=== PATIENT | male | born 1965 | race Caucasian/White ===

== ENCOUNTER 2017-12-16 11:37 | Emergency (ER) | payer OTHER, SELFPAY ==
[2017-12-16] VITALS (8 sets, daily range): BP systolic 175–193; BP diastolic 104–112; PULSE 73–87; RESP 7–18; TEMP 36.8; O2SAT 98–100
--- NOTE | 2017-12-16 11:49 | ED.GENADUL ---
Disposition <Sixto Funez - Last Filed: 12/16/17 12:10> <[place] - Last Filed: 12/19/17 09:45> Clinical Impression: High blood pressure, Dehydration Disposition: HOME Condition: Fair Instructions: Lisinopril (By mouth), Dehydration (ED), Hypertension (ED) Additional Instructions: Encourage hydration. Take lisinopril as prescribed. Take this once daily. Please follow-up with primary care this week for reevaluation. Avoid alcohol while symptoms persist. If you develop fever/chills, headache, visual changes, chest pain, shortness of breath or other new/worsening care urgently once again. Prescriptions: Lisinopril 10 mg PO .QD #10 tablet Referrals: Primary Care Provider [Outside] Medical Decision Making - EKG Data -: EKG Interpreted by Me 12/16/17 12:10 Rate 73, ID 134, QTc 447, QRS 98, normal sinus rhythm. No ST elevations or depressions. Inverted T-wave in V1. No Q waves. Normal EKG. <Sixto Funez - Last Filed: 12/16/17 12:10> - Lab Data Laboratory Tests 12/16/17 12/16/17 12/16/17 12:08 12:08 12:08 WBC 7.38 RBC 4.69 Hgb 15.1 Hct 43.2 MCV 92.1 MCH 32.2 MCHC 35.0 RDW 13.3 Plt Count 206 MPV 11.1 H Immature Gran % 0.7 Neutrophils % 47.7 Lymphocytes % 38.5 Monocytes % 11.2 Eosinophils % 1.4 Basophils % 0.5 Absolute Neutrophils 3.52 Absolute Lymphocytes 2.84 Absolute Monocytes 0.83 H Absolute Eosinophils 0.10 Absolute Basophils 0.04 D-Dimer 293 Sodium 138 Potassium 3.6 Chloride 102 Carbon Dioxide 26.4 Anion Gap 9.6 BUN 19 H Creatinine 0.85 Estimated GFR/1.73 m2 >= 60.00 Glucose 98 Calcium 8.7 Magnesium 2.3 Total Bilirubin 1.0 AST 24 ALT 44 Alkaline Phosphatase 100 Troponin I < 0.02 Total Protein 7.9 Albumin 4.3 Urine Color Urine Clarity Urine pH Ur Specific [place] Urine Protein Urine Ketones Urine Blood Urine Nitrite Urine Bilirubin Urine Urobilinogen Ur Leukocyte Esterase Urine RBC Urine WBC Ur Epithelial Cells Urine Crystals Urine Bacteria Urine Casts Urine Mucus Ur Culture Indicated? Urine Glucose 08/08/18 12:14 WBC RBC Hgb Hct MCV MCH MCHC RDW Plt Count MPV Immature Gran % Neutrophils % Lymphocytes % Monocytes % Eosinophils % Basophils % Absolute Neutrophils Absolute Lymphocytes Absolute Monocytes Absolute Eosinophils Absolute Basophils D-Dimer Sodium Potassium Chloride Carbon Dioxide Anion Gap BUN Creatinine Estimated GFR/1.73 m2 Glucose Calcium Magnesium Total Bilirubin AST ALT Alkaline Phosphatase Troponin I Total Protein Albumin Urine Color Yellow Urine Clarity Clear Urine pH 7.0 Ur Specific [place] 1.015 Urine Protein Negative Urine Ketones Negative Urine Blood Trace-intact H Urine Nitrite Negative Urine Bilirubin Negative Urine Urobilinogen 0.2 Ur Leukocyte Esterase Negative Urine RBC 3-5 H Urine WBC 0-2 Ur Epithelial Cells Rare Urine Crystals Negative Urine Bacteria Negative Urine Casts Negative Urine Mucus Negative Ur Culture Indicated? No Urine Glucose Negative Results reviewed for labs ordered during visit: Yes - Medical Decision Making Patient presents today with chief complaint of bug bite to the left forearm. On exam, this is more consistent with possible pincher scratch. Is a small abrasion to the left forearm with surrounding ecchymosis. Patient is also endorsing some dizziness particularly when going from a squatting to standing position which is atypical for him. Patient was concerned that the 2 may be linked. However, I am unable to link the 2 at this time. Patient appears nontoxic. There is no evidence of cellulitis at the opening in the skin. Patient is noted to have high blood pressure with a BP of 184/104. Patient reports that typically his blood pressures normal. He is not sure what this typically means for him. States he was seen by his primary care recently. He does have history of hyperlipidemia and GERD. He denies any headache. Drove up recently from [place]. No lower extremity edema. No calf tenderness. Asked nursing staff to obtain orthostatics. STanding BP 193/105, sitting 185/112, laying down 184/104. Pulse remained consistent at 75. Patient reported feeling light headed when going from sitting to standing position. Am concerned about patient's elevated blood pressure. I was able to speak with the nurse at patient's primary care office who was able to give me most recent readings of his blood pressure. He is typically in the 120s over 70s. This sudden spike of blood pressure is unusual for the patient. However, he remains otherwise asymptomatic. I question the patient multiple times about any headaches, chest pain or shortness of breath and he denies all of these symptoms. We will obtain laboratory evaluation. Laboratory evaluation without significant abnormality. D-dimer is normal at 293. Troponin is less than 0.02. No leukocytosis. Kidney function is normal. Patient did appear slightly dehydrated on exam. BUN is 19. I encouraged hydration. Patient's blood pressure, while resting in the department, did come down slightly to 175/106. Patient continues to remain asymptomatic. I did ambulate the patient about the department. His lightheadedness has since resolved. Patient is able to go from a lying to a standing position and remain asymptomatic. He reports he is feeling much improved. I discussed the case at length with Dr. Funez. I discussed my concerns of his hypertension. Primary care is aware of his current blood pressure. Dr. Funez recommended beginning the patient on lisinopril. We will start him on a low dose in an effort to not bottom out his blood pressure. He was given strict return precautions. Will be evaluated by his primary care within the next 48 hours. <[place] - Last Filed: 12/19/17 09:45> History of Present Illness <Sixto Funez - Last Filed: 12/16/17 12:10> - General Source: patient, RN notes reviewed Mode of arrival: ambulatory Limitations: no limitations - History of Present Illness Initial comments: Patient is a 52 year old male presenting today with chief complaint of bug bite to the left bicep. Ports that yesterday he believes that he was bitten by a bug. Awoke this morning to note a circumferential discoloration around the area of bite. Has not had any fevers or chills. Also reports that he is feeling dizzy. He describes as dizziness as feeling lightheaded when he goes from a bent over position to standing up. Reports he is trying to help his children this morning was bending over looking under motorized vehicles. States that when he stood up he had an episode of lightheadedness. No syncope. Denies any headache. Denies any visual changes, hearing changes, shortness of breath, chest pain. Patient is from [place] and drove up 5 days ago. He denies any posterior calf pain. Has not noted any leg swelling. States that yesterday he was outside throughout the course of the day, is quite hot yesterday. States that he did try to drink water. Also reports that he has been drinking alcohol for the past 2 days. <[place] - Last Filed: 12/19/17 09:45> - General Stated complaint: BUG BITE Time Seen by Provider: 12/16/17 11:41 - Related Data Lisinopril 10 mg PO .QD #10 tablet 12/16/17 Omeprazole 20 mg PO BID 12/16/17 Simvastatin 40 mg PO DAILY 12/16/17 Allergies Allergy/AdvReac Type Severity Reaction Status Date / Time No Known Allergies Allergy Unverified 12/16/17 13:52 Review of Systems Constitutional: no symptoms reported. denies: chills, fever, malaise Eyes: denies: vision change ENT: denies: ear pain, hearing loss Respiratory: no symptoms reported. denies: cough, shortness of breath, SOB with excertion, wheezing Cardiovascular: denies: chest pain, palpitations, dyspnea on exertion Gastrointestinal: denies: abdominal pain, nausea, vomiting Musculoskeletal: denies: back pain Skin: as per HPI Neurological: as per HPI. denies: headache, weakness, numbness, paresthesias, confusion, abnormal gait, vertigo <[place] - Last Filed: 12/19/17 09:45> Past Medical History - Past Medical History Medical history: GERD, hyperlipidemia Surgical history: no surgical history - Social History Alcohol use: occasionally, recent Drug use: marijuana <[place] - Last Filed: 12/19/17 09:45> General Exam - General Limitations: no limitations General appearance: alert, in no apparent distress - Head Head exam: Present: atraumatic - Eye Eye exam: Present: normal apperance - Respiratory Respiratory exam: Present: normal lung sounds bilaterally. Absent: respiratory distress - Cardiovascular Cardiovascular Exam: Present: regular rate, normal rhythm, normal heart sounds - GI/Abdominal GI/Abdominal exam: Present: soft. Absent: distended, tenderness - Rectal Rectal exam: Present: deferred - Extremities Exam Extremities exam: Present: normal inspection. Absent: pedal edema, calf tenderness - Neurological Exam Neurological exam: Present: alert, normal gait - Psychiatric Psychiatric exam: Present: normal affect, normal mood - Skin Skin exam: Present: warm, dry. Absent: intact (Patient is a small superficial scratch is approximately 2 mm in length over the left bicep. Surrounding this area is a circumferential area of ecchymosis approximately 2 cm in diameter. It is not raised. No evidence of excoriation.) <[place] - Last Filed: 12/19/17 09:45> Course Vital Signs - 24 hr 12/16/17 12/16/17 11:43 11:56 Temperature 36.8 C Pulse 74 Respiratory 18 16 Rate Blood Pressure 184/104 Pulse Oximetry 98 <Sixto Funez - Last Filed: 12/16/17 12:10> Vital Signs - 24 hr 12/16/17 11:43 Temperature 36.8 C Pulse 74 Respiratory 18 Rate Blood Pressure 184/104 Pulse Oximetry 98 <[place] - Last Filed: 12/19/17 09:45>
[2017-12-16 12:22] LABS: Abs Immature Grans 0.05 k/cumm (0.0-0.09); Absolute Basophil Count 0.04 k/cumm (0.0-0.2); Absolute Lymphocyte Count 2.84 k/cumm (1.2-3.4); Absolute Monocyte Count 0.83 k/cumm (0.11-0.7); Absolute Neutrophil Count 3.52 k/cumm (1.2-6.7); Basophils % 0.5; Eosinophils % 1.4; HCT 43.2 % (40.0-50.0); HGB 15.1 g/dL (13.5-17.5); Immature Grans % 0.7; Lymphocytes % 38.5; Mean Corpuscular Hemoglobin 32.2 pg (27.0-33.0); Mean Corpuscular Volume 92.1 fL (80-95); Mean Platelet Volume 11.1 fL (8.0-11.0); Monocytes % 11.2; Neutrophils % 47.7; Platelet Count 206 x1000/uL (130-400); RBC 4.69 m/cumm (4.50-6.00); RBC Distribution Width 13.3 % (11.8-14.1); White Blood Cell Count 7.38 k/cumm (4.4-10.8)
[2017-12-16 12:24] LABS: Bilirubin Negative (Negative); Blood Trace-intact (Negative); Clarity Clear; Glucose Negative (Negative); Ketones Negative (Negative); Leukocyte Esterase Negative (Negative); Nitrite Negative (Negative); Specific Gravity 1.015 (1.005-1.025); Urobilinogen 0.2 EU/dL (Up TO 0.2)
[2017-12-16 12:35] LABS: Bacteria Negative HPF (Negative); C & S Indicated? No; Casts Negative LPF (Negative); Crystals Negative HPF (Negative); Epithelial Cells Rare HPF (Negative); Mucus Negative (Negative); WBC 0-2 HPF (0-5)
[2017-12-16 12:37] LABS: ALT 44 U/L (12-78); AST 24 U/L (15-37); Albumin 4.3 g/dL (3.4-5.0); Alkaline Phosphatase 100 U/L (46-116); Anion Gap 9.6 mmol/L (3-11); BUN 19 mg/dL (7-18); CO2 26.4 mmol/L (21.0-32.0); CREATININE 0.85 mg/dL (0.70-1.30); Calcium 8.7 mg/dL (8.5-10.1); Chloride 102 mmol/L (98-107); Glucose 98 mg/dL (70-100); Magnesium 2.3 mg/dL (1.8-2.4); Potassium 3.6 mmol/L (3.5-5.1); Sodium 138 mmol/L (136-145); Total Protein 7.9 g/dL (6.4-8.2); Troponin I < 0.02 ng/mL (0.00-0.06)
[2017-12-16 13:07] LABS: D-Dimer 293 ng/mlFEU (<500)
== END 2017-12-16 14:08 | disposition home or self-care (01) ==
LOC: ER 05-05 09:42
PROVIDERS: Physician Assistant; Emergency Provider Student in an Organized Health Care Education/Training Program
DX: I10 Essential (primary) hypertension (principal); E86.0 Dehydration; R42 Dizziness and giddiness
CPT/HCPCS: 36415; 80053; 93005; 99284; 81003; 81015; 83735; 84484; 85025; 85379; 93010